=== PATIENT | male | born 1960 | race Two or more races ===

== ENCOUNTER 2019-09-03 19:25 | Inpatient (IN) | payer MEDICAID ==
[~2019-09-03] VITALS: Ht 172.7 cm; Wt 81.6 kg
[2019-09-03 23:11] LABS: BASOPHILS % 0.8 % (0.0-2.0); EOSINOPHILS % 0.7 % (0.0-5.0); HEMATOCRIT. 40.9 % (42.0-52.0); LYMPHOCYTES % 19.9 % (20.0-50.0); MEAN CORPUSCULAR HEMOGLOBIN 32.4 pg (28.0-32.0); MEAN CORPUSCULAR VOLUME 94.8 fL (80.0-94.0); MEAN PLATELET VOLUME 8.8 fl (7.4-10.4); MONOCYTES % 5.8 % (2.0-8.0); NEUTROPHILS % 72.8 % (40.0-76.0); PLATELET 284 x1000/uL (130-400); RED BLOOD CELL COUNT 4.31 mill/uL (4.7-6.1); RED CELL DISTRIBUTION WIDTH 12.8 % (11.6-14.6)
[2019-09-03 23:14] LABS: CHLORIDE 105 mEq/L (98-107)
[2019-09-04] MEDS ORDERED: ASPIRIN 325MG TABLET PO NR (03:15)
[2019-09-04] MEDS ORDERED: ONDANSETRON HCL 4MG/2ML INJ IV NR (03:15)
[2019-09-04] MEDS ORDERED: ONDANSETRON HCL 4MG/2ML INJ IV PRN (08:00)
[2019-09-04] MEDS ORDERED: ACETAMINOPHEN 325MG TABLET PO PRN (08:00)
[2019-09-04] MEDS ORDERED: ASPIRIN 81MG TABLET PO SCH (09:00)
[2019-09-04 09:30] VITALS: BP 158/101
[2019-09-04] MEDS: AMLODIPINE 10MG TABLET PO SCH (10:22)
[2019-09-04] MEDS: ENOXAPARIN 40MG/0.4ML SYR SUBCUT SCH (10:23)
[2019-09-04] MEDS ORDERED: DORZ10DR8 EACHEYE (10:53)
[2019-09-04] MEDS ORDERED: BRIM.2 EACHEYE (10:53)
[2019-09-04] MEDS ORDERED: LISI-604 PO (10:53)
[2019-09-04] MEDS ORDERED: ASPI-1497 PO (10:53)
[2019-09-04] MEDS ORDERED: ATOR40TA70 PO (10:53)
[2019-09-04] MEDS ORDERED: CHLO25TA2 PO (10:53)
[2019-09-04] MEDS ORDERED: CLONIDINE 0.1MG TABLET PO PRN (11:15)
[2019-09-04 16:00] VITALS: BP 141/87
[2019-09-04] MEDS: LOSARTAN POTASSIUM 50 MG TABLET PO SCH (18:36)
[2019-09-04 20:00] VITALS: BP 165/99
[2019-09-04] MEDS: ATORVASTATIN CALCIUM 40MG TABLET PO SCH (21:09)
[2019-09-04] MEDS: BRIMONIDINE 0.2% OPHTH DROPS 5ML BOTHEYE SCH (21:10)
[2019-09-05] VITALS: BP 153/93
[2019-09-05 04:00] VITALS: BP 144/90
[2019-09-05] MEDS: BRIMONIDINE 0.2% OPHTH DROPS 5ML BOTHEYE SCH ×3 (05:30→22:00)
[2019-09-05 06:47] LABS: CHLORIDE 109 mEq/L (98-107)
[2019-09-05 06:51] LABS: ETHANOL BLOOD < 10 mg/dL
[2019-09-05 06:54] LABS: LDL CHOLESTEROL 89 mg/dL (5-100)
[2019-09-05 06:55] LABS: BASOPHILS % 0.5 % (0.0-2.0); EOSINOPHILS % 0.3 % (0.0-5.0); HEMATOCRIT. 40.3 % (42.0-52.0); HEMOGLOBIN. 13.8 g/dL (14.0-18.0); LYMPHOCYTES % 17.6 % (20.0-50.0); MEAN CORPUSCULAR HEMOGLOBIN 32.2 pg (28.0-32.0); MEAN CORPUSCULAR VOLUME 93.8 fL (80.0-94.0); MEAN PLATELET VOLUME 8.6 fl (7.4-10.4); MONOCYTES % 13.9 % (2.0-8.0); NEUTROPHILS % 67.7 % (40.0-76.0); PLATELET 279 x1000/uL (130-400); RED CELL DISTRIBUTION WIDTH 13.2 % (11.6-14.6)
[2019-09-05 06:56] LABS: HDL CHOLESTEROL 38 mg/dL (40-59); T4 FREE 1.08 ng/dL (0.76-1.46)
[2019-09-05 07:06] LABS: FOLIC ACID (FOLATE) SERUM 8.2 ng/mL (>5.38)
[2019-09-05 08:00] VITALS: BP 141/104
[2019-09-05] MEDS: CLOPIDOGREL 75MG TABLET PO SCH (08:12)
[2019-09-05] MEDS: ENOXAPARIN 40MG/0.4ML SYR SUBCUT SCH (08:13)
[2019-09-05] MEDS: LOSARTAN POTASSIUM 50 MG TABLET PO SCH (08:13)
[2019-09-05] MEDS: AMLODIPINE 10MG TABLET PO SCH (08:13)
[2019-09-05] MEDS: DORZOLAMIDE 2% OPHTH 10 ML BOTTLE BOTHEYE SCH (08:14)
[2019-09-05 12:00] VITALS: BP 155/58
[2019-09-05] MEDS ORDERED: LISI40TA4 MT (14:36)
[2019-09-05] MEDS ORDERED: LIP40 MT (14:36)
[2019-09-05] MEDS ORDERED: CLOP75TA4 MT (14:36)
[2019-09-05] MEDS ORDERED: AMLO10TA80 MT (14:36)
[2019-09-05 16:00] VITALS: BP 138/94
[2019-09-05 20:00] VITALS: BP 126/76
[2019-09-05] MEDS: ATORVASTATIN CALCIUM 40MG TABLET PO SCH (22:00)
[2019-09-06] VITALS (7 sets, daily range): BP systolic 124–151; BP diastolic 84–98
[2019-09-06] MEDS: BRIMONIDINE 0.2% OPHTH DROPS 5ML BOTHEYE SCH ×3 (05:39→21:16)
[2019-09-06] MEDS: DORZOLAMIDE 2% OPHTH 10 ML BOTTLE BOTHEYE SCH (09:10)
[2019-09-06] MEDS: CLOPIDOGREL 75MG TABLET PO SCH (09:10)
[2019-09-06] MEDS: LOSARTAN POTASSIUM 50 MG TABLET PO SCH (09:11)
[2019-09-06] MEDS: AMLODIPINE 10MG TABLET PO SCH (09:11)
[2019-09-06] MEDS: ENOXAPARIN 40MG/0.4ML SYR SUBCUT SCH (09:11)
[2019-09-06] MEDS: ATORVASTATIN CALCIUM 40MG TABLET PO SCH (21:16)
[2019-09-07] VITALS (7 sets, daily range): BP systolic 112–153; BP diastolic 73–96
[2019-09-07] MEDS: BRIMONIDINE 0.2% OPHTH DROPS 5ML BOTHEYE SCH ×2 (05:18→13:37)
[2019-09-07] MEDS: CLOPIDOGREL 75MG TABLET PO SCH (09:47)
[2019-09-07] MEDS: LOSARTAN POTASSIUM 50 MG TABLET PO SCH (09:47)
[2019-09-07] MEDS: DORZOLAMIDE 2% OPHTH 10 ML BOTTLE BOTHEYE SCH (09:47)
[2019-09-07] MEDS: AMLODIPINE 10MG TABLET PO SCH (09:47)
[2019-09-07] MEDS: ENOXAPARIN 40MG/0.4ML SYR SUBCUT SCH (09:48)
[2019-09-07] MEDS ORDERED: LACTULOSE 20G/30ML UDC PO SCH (12:45)
[2019-09-07] MEDS ORDERED: BISACODYL 10MG SUPP PR NR (17:00)
[2019-09-07] MEDS ORDERED: SORBITOL 70% SOLN 30ML PO NR (17:00)
[2019-09-08 04:07] LABS: BARBITURATE SCREEN Negative ug/mL (Cutoff:0.1); BENZODIAZEPINE SCREEN Negative ng/mL (Cutoff:20); OPIATES SCREEN Negative ng/mL (Cutoff:5); PHENCYCLIDINE SCREEN Negative ng/mL (Cutoff:8)
== END 2019-09-07 19:50 | DRG 45 ==
LOC: ER 19:25 → 5EST 09-04 03:12 → EDBEDREQTM 09-04 03:24 → EDBEDREQ 09-04 03:24 → EDBEDREQDT 09-04 03:24 → ENRESERV 09-04 08:13 → 5WST 09-06 00:15
PROVIDERS: ADMIT Internal Medicine; ATTEND Internal Medicine
DX: I63.9 Cerebral infarction, unspecified (principal); E87.1 Hypo-osmolality and hyponatremia; I10 Essential (primary) hypertension; I16.0 Hypertensive urgency; F03.90 Unspecified dementia, unspecified severity, without behavioral disturbance, psychotic disturbance, mood disturbance, and anxiety; G81.94 Hemiplegia, unspecified affecting left nondominant side; D64.9 Anemia, unspecified; H54.8 Legal blindness, as defined in USA; H40.9 Unspecified glaucoma; E78.00 Pure hypercholesterolemia, unspecified; R26.89 Other abnormalities of gait and mobility; R47.1 Dysarthria and anarthria; R53.81 Other malaise; R73.9 Hyperglycemia, unspecified; Z79.82 Long term (current) use of aspirin; Z79.899 Other long term (current) drug therapy
CPT/HCPCS: 36415; 70544; 70551; 71045; 80048; 80053; 80061; 80307; 80320; 82607; 82746; 83036; 84439; 84443; 84481; 84484; 85025; 92523; 92610; 93005; 93306; 93880; 97112; 97162; 97167; 97530; 97535; 99291; J1650; J2405; G0480

== ENCOUNTER 2019-09-07 19:55 | Inpatient (IN) | payer MEDICAID ==
[~2019-09-07] VITALS: Ht 172.7 cm; Wt 71.7 kg
[2019-09-07 19:50] VITALS: BP 126/81
[~2019-09-07 19:55] MED LIST: AMLO10TA80 MT; ATOR40TA70 PO; BRIM.2 EACHEYE; CHLO25TA2 PO; CLOP75TA4 MT; DORZ10DR8 EACHEYE; LIP40 MT; LISI-604 PO; LISI40TA4 MT
[2019-09-07 20:00] VITALS: BP 126/81
[2019-09-07] MEDS ORDERED: ONDANSETRON HCL 4MG/2ML INJ IV PRN (21:45)
[2019-09-07] MEDS ORDERED: LACTULOSE 20G/30ML UDC PO NR (22:07)
[2019-09-07] MEDS ORDERED: CLONIDINE 0.1MG TABLET PO PRN (22:09)
[2019-09-08] MEDS: ATORVASTATIN CALCIUM 10MG TABLET PO SCH ×2 (01:05→21:33)
[2019-09-08 05:44] LABS: CHLORIDE 108 mEq/L (98-107)
[2019-09-08] MEDS: BRIMONIDINE 0.2% OPHTH DROPS 5ML BOTHEYE SCH ×3 (05:51→21:33)
[2019-09-08 06:59] LABS: BASOPHILS % 0.5 % (0.0-2.0); EOSINOPHILS % 1.6 % (0.0-5.0); HEMATOCRIT. 43.5 % (42.0-52.0); HEMOGLOBIN. 14.9 g/dL (14.0-18.0); LYMPHOCYTES % 24.9 % (20.0-50.0); MEAN CORPUSCULAR HEMOGLOBIN 32.5 pg (28.0-32.0); MEAN CORPUSCULAR VOLUME 94.7 fL (80.0-94.0); MEAN PLATELET VOLUME 8.6 fl (7.4-10.4); MONOCYTES % 13.2 % (2.0-8.0); NEUTROPHILS % 59.8 % (40.0-76.0); PLATELET 316 x1000/uL (130-400); RED BLOOD CELL COUNT 4.59 mill/uL (4.7-6.1); RED CELL DISTRIBUTION WIDTH 13.2 % (11.6-14.6)
[2019-09-08 08:00] VITALS: BP 123/73
[2019-09-08] MEDS: LOSARTAN POTASSIUM 50 MG TABLET PO SCH (08:23)
[2019-09-08] MEDS: CLOPIDOGREL 75MG TABLET PO SCH (08:23)
[2019-09-08] MEDS: AMLODIPINE 10MG TABLET PO SCH (08:24)
[2019-09-08] MEDS: DORZOLAMIDE 2% OPHTH 10 ML BOTTLE BOTHEYE SCH (08:28)
[2019-09-08] MEDS: ENOXAPARIN 40MG/0.4ML SYR SUBCUT SCH (10:07)
[2019-09-08] MEDS ORDERED: LACTULOSE 20G/30ML UDC PO SCH ×2 (12:00→14:00)
[2019-09-08] MEDS: ACETAMINOPHEN 325MG TABLET PO PRN (12:46)
[2019-09-08] MEDS: DOCUSATE SODIUM 100MG CAPSULE PO SCH (18:14)
[2019-09-08 20:00] VITALS: BP 140/96
[2019-09-08] MEDS: POLYETHYLENE GLYCOL 3350 (17GM) 1 DOSE PACK PO SCH (21:00)
[2019-09-08] MEDS ORDERED: ATORVASTATIN CALCIUM 10MG TABLET PO SCH (21:00)
[2019-09-09 02:00] VITALS: BP 104/72
[2019-09-09] MEDS: BRIMONIDINE 0.2% OPHTH DROPS 5ML BOTHEYE SCH ×3 (06:11→21:55)
[2019-09-09] MEDS: PANTOPRAZOLE 40MG DR TABLET PO SCH (06:11)
[2019-09-09 08:00] VITALS: BP 137/75
[2019-09-09] MEDS: AMLODIPINE 10MG TABLET PO SCH (09:45)
[2019-09-09] MEDS: DORZOLAMIDE 2% OPHTH 10 ML BOTTLE BOTHEYE SCH (09:45)
[2019-09-09] MEDS: LOSARTAN POTASSIUM 50 MG TABLET PO SCH (09:45)
[2019-09-09] MEDS: DOCUSATE SODIUM 100MG CAPSULE PO SCH ×2 (09:45→17:40)
[2019-09-09] MEDS: CLOPIDOGREL 75MG TABLET PO SCH (09:45)
[2019-09-09] MEDS: ENOXAPARIN 40MG/0.4ML SYR SUBCUT SCH (09:46)
[2019-09-09 10:40] VITALS: BP 137/75
[2019-09-09 20:00] VITALS: BP 104/72
[2019-09-09] MEDS: ATORVASTATIN CALCIUM 10MG TABLET PO SCH (20:44)
[2019-09-09] MEDS: POLYETHYLENE GLYCOL 3350 (17GM) 1 DOSE PACK PO SCH (20:44)
[2019-09-10 06:12] LABS: CHLORIDE 107 mEq/L (98-107)
[2019-09-10 06:19] LABS: PHOSPHORUS 2.5 mg/dL (2.5-4.9)
[2019-09-10 06:20] LABS: LDL CHOLESTEROL 91 mg/dL (5-100)
[2019-09-10 06:21] LABS: TOTAL IRON BINDING CAPACITY 242 ug/dL (250-450)
[2019-09-10 06:22] LABS: HDL CHOLESTEROL 34 mg/dL (40-59)
[2019-09-10 06:32] LABS: FOLIC ACID (FOLATE) SERUM 7.7 ng/mL (>5.38)
[2019-09-10] MEDS: PANTOPRAZOLE 40MG DR TABLET PO SCH (06:33)
[2019-09-10] MEDS: BRIMONIDINE 0.2% OPHTH DROPS 5ML BOTHEYE SCH ×3 (06:34→21:19)
[2019-09-10 06:35] LABS: BASOPHILS % 0.6 % (0.0-2.0); HEMATOCRIT. 44.4 % (42.0-52.0); HEMOGLOBIN. 15.1 g/dL (14.0-18.0); LYMPHOCYTES % 26.6 % (20.0-50.0); MEAN CORPUSCULAR VOLUME 94.2 fL (80.0-94.0); MEAN PLATELET VOLUME 8.4 fl (7.4-10.4); MONOCYTES % 12.8 % (2.0-8.0); PLATELET 308 x1000/uL (130-400); RED BLOOD CELL COUNT 4.72 mill/uL (4.7-6.1); RED CELL DISTRIBUTION WIDTH 13.1 % (11.6-14.6)
[2019-09-10 06:39] LABS: PROSTRATE SPECIFIC AG TOTAL 0.66 ng/mL (0.0-4.0)
[2019-09-10 08:17] VITALS: BP 106/76
[2019-09-10] MEDS: DORZOLAMIDE 2% OPHTH 10 ML BOTTLE BOTHEYE SCH (08:59)
[2019-09-10] MEDS: CLOPIDOGREL 75MG TABLET PO SCH (09:00)
[2019-09-10] MEDS: LOSARTAN POTASSIUM 50 MG TABLET PO SCH (09:00)
[2019-09-10] MEDS: AMLODIPINE 10MG TABLET PO SCH ×2 (09:00→09:01)
[2019-09-10] MEDS: DOCUSATE SODIUM 100MG CAPSULE PO SCH ×2 (09:00→16:37)
[2019-09-10] MEDS: ENOXAPARIN 40MG/0.4ML SYR SUBCUT SCH (09:01)
[2019-09-10] MEDS ORDERED: CYANOCOBALAMIN 1000MCG/ML VIAL IM NR (11:15)
[2019-09-10] MEDS ORDERED: BISACODYL 5MG TABLET PO PRN (14:45)
[2019-09-10] MEDS ORDERED: NA PHOS,M-B/NA PHOS,DI-BA ENEMA 118ML PR PRN (14:45)
[2019-09-10] MEDS: LACTULOSE 20G/30ML UDC PO PRN (16:38)
[2019-09-10 20:00] VITALS: BP 117/77
[2019-09-10] MEDS: POLYETHYLENE GLYCOL 3350 (17GM) 1 DOSE PACK PO SCH (21:18)
[2019-09-10] MEDS: FAMOTIDINE 20MG TABLET PO SCH (21:19)
[2019-09-10] MEDS: ATORVASTATIN CALCIUM 10MG TABLET PO SCH (21:19)
[2019-09-11] MEDS: BRIMONIDINE 0.2% OPHTH DROPS 5ML BOTHEYE SCH ×3 (05:16→21:20)
[2019-09-11] MEDS: LOSARTAN POTASSIUM 50 MG TABLET PO SCH (08:16)
[2019-09-11] MEDS: DOCUSATE SODIUM 100MG CAPSULE PO SCH ×2 (08:16→16:13)
[2019-09-11] MEDS: ENOXAPARIN 40MG/0.4ML SYR SUBCUT SCH (08:16)
[2019-09-11] MEDS: CLOPIDOGREL 75MG TABLET PO SCH (08:16)
[2019-09-11] MEDS: FAMOTIDINE 20MG TABLET PO SCH ×2 (08:16→21:20)
[2019-09-11] MEDS: DORZOLAMIDE 2% OPHTH 10 ML BOTTLE BOTHEYE SCH (08:17)
[2019-09-11 08:30] VITALS: BP 138/78
[2019-09-11 20:00] VITALS: BP 104/68
[2019-09-11] MEDS: POLYETHYLENE GLYCOL 3350 (17GM) 1 DOSE PACK PO SCH (21:20)
[2019-09-11] MEDS: ATORVASTATIN CALCIUM 10MG TABLET PO SCH (21:20)
[2019-09-12] MEDS: BRIMONIDINE 0.2% OPHTH DROPS 5ML BOTHEYE SCH ×3 (06:12→20:41)
[2019-09-12 07:35] VITALS: BP 118/76
[2019-09-12] MEDS: DOCUSATE SODIUM 100MG CAPSULE PO SCH ×2 (08:13→16:21)
[2019-09-12] MEDS: FAMOTIDINE 20MG TABLET PO SCH ×2 (08:13→20:41)
[2019-09-12] MEDS: CLOPIDOGREL 75MG TABLET PO SCH (08:13)
[2019-09-12] MEDS: LOSARTAN POTASSIUM 50 MG TABLET PO SCH (08:13)
[2019-09-12] MEDS: DORZOLAMIDE 2% OPHTH 10 ML BOTTLE BOTHEYE SCH (08:14)
[2019-09-12] MEDS: ENOXAPARIN 40MG/0.4ML SYR SUBCUT SCH (08:14)
[2019-09-12 20:00] VITALS: BP 156/95
[2019-09-12] MEDS: ATORVASTATIN CALCIUM 10MG TABLET PO SCH (20:41)
[2019-09-12] MEDS: POLYETHYLENE GLYCOL 3350 (17GM) 1 DOSE PACK PO SCH (20:41)
[2019-09-13] MEDS: BRIMONIDINE 0.2% OPHTH DROPS 5ML BOTHEYE SCH ×3 (05:19→21:08)
[2019-09-13 07:58] VITALS: BP 128/88
[2019-09-13 08:08] VITALS: BP 128/88
[2019-09-13] MEDS: LOSARTAN POTASSIUM 25 MG TABLET PO SCH (09:02)
[2019-09-13] MEDS: FAMOTIDINE 20MG TABLET PO SCH ×2 (09:02→20:17)
[2019-09-13] MEDS: CLOPIDOGREL 75MG TABLET PO SCH (09:02)
[2019-09-13] MEDS: ENOXAPARIN 40MG/0.4ML SYR SUBCUT SCH (09:03)
[2019-09-13] MEDS: DORZOLAMIDE 2% OPHTH 10 ML BOTTLE BOTHEYE SCH (09:04)
[2019-09-13] MEDS: DOCUSATE SODIUM 100MG CAPSULE PO SCH ×2 (09:06→16:29)
[2019-09-13 20:00] VITALS: BP 136/89
[2019-09-13] MEDS: ATORVASTATIN CALCIUM 10MG TABLET PO SCH (20:17)
[2019-09-13] MEDS: POLYETHYLENE GLYCOL 3350 (17GM) 1 DOSE PACK PO SCH (20:18)
[2019-09-14] MEDS: BRIMONIDINE 0.2% OPHTH DROPS 5ML BOTHEYE SCH ×3 (05:12→21:13)
[2019-09-14 07:55] LABS: BASOPHILS % 0.5 % (0.0-2.0); EOSINOPHILS % 2.4 % (0.0-5.0); HEMATOCRIT. 40.8 % (42.0-52.0); HEMOGLOBIN. 13.9 g/dL (14.0-18.0); MEAN CORPUSCULAR HEMOGLOBIN 32.2 pg (28.0-32.0); MEAN CORPUSCULAR VOLUME 94.2 fL (80.0-94.0); MEAN PLATELET VOLUME 8.1 fl (7.4-10.4); MONOCYTES % 13.1 % (2.0-8.0); PLATELET 316 x1000/uL (130-400); RED BLOOD CELL COUNT 4.33 mill/uL (4.7-6.1); RED CELL DISTRIBUTION WIDTH 12.8 % (11.6-14.6)
[2019-09-14 08:00] VITALS: BP 124/81
[2019-09-14 08:20] LABS: CHLORIDE 108 mEq/L (98-107)
[2019-09-14] MEDS: CLOPIDOGREL 75MG TABLET PO SCH (09:30)
[2019-09-14] MEDS: DOCUSATE SODIUM 100MG CAPSULE PO SCH ×2 (09:30→17:03)
[2019-09-14] MEDS: FAMOTIDINE 20MG TABLET PO SCH ×2 (09:30→21:12)
[2019-09-14] MEDS: LOSARTAN POTASSIUM 25 MG TABLET PO SCH (09:30)
[2019-09-14] MEDS: ENOXAPARIN 40MG/0.4ML SYR SUBCUT SCH (09:31)
[2019-09-14] MEDS: DORZOLAMIDE 2% OPHTH 10 ML BOTTLE BOTHEYE SCH (09:31)
[2019-09-14 13:07] LABS: 25-HYDROXY VITAMIN D3 25 ng/mL (.)
[2019-09-14] MEDS: ACETAMINOPHEN 325MG TABLET PO PRN (19:46)
[2019-09-14 20:00] VITALS: BP 124/89
[2019-09-14] MEDS: POLYETHYLENE GLYCOL 3350 (17GM) 1 DOSE PACK PO SCH (21:00)
[2019-09-14] MEDS: ATORVASTATIN CALCIUM 10MG TABLET PO SCH (21:12)
[2019-09-15] MEDS: BRIMONIDINE 0.2% OPHTH DROPS 5ML BOTHEYE SCH ×3 (05:14→21:39)
[2019-09-15 08:00] VITALS: BP 129/83
[2019-09-15] MEDS: FAMOTIDINE 20MG TABLET PO SCH ×2 (08:57→20:42)
[2019-09-15] MEDS: ENOXAPARIN 40MG/0.4ML SYR SUBCUT SCH (09:38)
[2019-09-15] MEDS: DORZOLAMIDE 2% OPHTH 10 ML BOTTLE BOTHEYE SCH (09:38)
[2019-09-15] MEDS: DOCUSATE SODIUM 100MG CAPSULE PO SCH ×2 (09:39→16:36)
[2019-09-15] MEDS: LOSARTAN POTASSIUM 25 MG TABLET PO SCH (09:39)
[2019-09-15] MEDS: CLOPIDOGREL 75MG TABLET PO SCH (09:39)
[2019-09-15 20:00] VITALS: BP 111/70
[2019-09-15] MEDS: ATORVASTATIN CALCIUM 10MG TABLET PO SCH (20:42)
[2019-09-15] MEDS: POLYETHYLENE GLYCOL 3350 (17GM) 1 DOSE PACK PO SCH (20:42)
[2019-09-16] MEDS: BRIMONIDINE 0.2% OPHTH DROPS 5ML BOTHEYE SCH ×3 (05:57→21:57)
[2019-09-16 07:51] VITALS: BP 124/85
[2019-09-16] MEDS: FAMOTIDINE 20MG TABLET PO SCH ×2 (08:20→21:56)
[2019-09-16] MEDS: LOSARTAN POTASSIUM 25 MG TABLET PO SCH (08:20)
[2019-09-16] MEDS: DOCUSATE SODIUM 100MG CAPSULE PO SCH ×2 (08:20→16:33)
[2019-09-16] MEDS: CLOPIDOGREL 75MG TABLET PO SCH (08:20)
[2019-09-16] MEDS: ENOXAPARIN 40MG/0.4ML SYR SUBCUT SCH (08:20)
[2019-09-16] MEDS: DORZOLAMIDE 2% OPHTH 10 ML BOTTLE BOTHEYE SCH (08:22)
[2019-09-16 20:00] VITALS: BP 111/44
[2019-09-16] MEDS: POLYETHYLENE GLYCOL 3350 (17GM) 1 DOSE PACK PO SCH (21:00)
[2019-09-16] MEDS: ATORVASTATIN CALCIUM 10MG TABLET PO SCH (21:56)
[2019-09-17] MEDS: BRIMONIDINE 0.2% OPHTH DROPS 5ML BOTHEYE SCH ×3 (05:23→22:04)
[2019-09-17 07:33] VITALS: BP 130/76
[2019-09-17] MEDS: CLOPIDOGREL 75MG TABLET PO SCH (08:16)
[2019-09-17] MEDS: DOCUSATE SODIUM 100MG CAPSULE PO SCH ×2 (08:16→17:07)
[2019-09-17] MEDS: LACTULOSE 20G/30ML UDC PO PRN (08:16)
[2019-09-17] MEDS: LOSARTAN POTASSIUM 25 MG TABLET PO SCH (08:16)
[2019-09-17] MEDS: FAMOTIDINE 20MG TABLET PO SCH ×2 (08:16→22:03)
[2019-09-17] MEDS: ENOXAPARIN 40MG/0.4ML SYR SUBCUT SCH (08:17)
[2019-09-17] MEDS: DORZOLAMIDE 2% OPHTH 10 ML BOTTLE BOTHEYE SCH (08:17)
[2019-09-17 20:00] VITALS: BP 109/67
[2019-09-17] MEDS: POLYETHYLENE GLYCOL 3350 (17GM) 1 DOSE PACK PO SCH (22:03)
[2019-09-17] MEDS: ATORVASTATIN CALCIUM 10MG TABLET PO SCH (22:03)
[2019-09-18] MEDS: BRIMONIDINE 0.2% OPHTH DROPS 5ML BOTHEYE SCH ×3 (06:16→20:20)
[2019-09-18 07:50] VITALS: BP 152/93
[2019-09-18] MEDS: LOSARTAN POTASSIUM 25 MG TABLET PO SCH (08:08)
[2019-09-18] MEDS: CLOPIDOGREL 75MG TABLET PO SCH (08:08)
[2019-09-18] MEDS: ENOXAPARIN 40MG/0.4ML SYR SUBCUT SCH (08:08)
[2019-09-18] MEDS: FAMOTIDINE 20MG TABLET PO SCH ×2 (08:08→20:20)
[2019-09-18] MEDS: DOCUSATE SODIUM 100MG CAPSULE PO SCH ×2 (08:08→17:18)
[2019-09-18] MEDS: DORZOLAMIDE 2% OPHTH 10 ML BOTTLE BOTHEYE SCH (08:08)
[2019-09-18 20:00] VITALS: BP 109/68
[2019-09-18] MEDS: POLYETHYLENE GLYCOL 3350 (17GM) 1 DOSE PACK PO SCH (20:20)
[2019-09-18] MEDS: ATORVASTATIN CALCIUM 10MG TABLET PO SCH (20:20)
[2019-09-19] MEDS: BRIMONIDINE 0.2% OPHTH DROPS 5ML BOTHEYE SCH ×3 (05:53→22:23)
[2019-09-19 08:01] VITALS: BP 119/76
[2019-09-19] MEDS: ENOXAPARIN 40MG/0.4ML SYR SUBCUT SCH (08:09)
[2019-09-19] MEDS: FAMOTIDINE 20MG TABLET PO SCH ×2 (08:09→21:26)
[2019-09-19] MEDS: LOSARTAN POTASSIUM 25 MG TABLET PO SCH (08:09)
[2019-09-19] MEDS: DOCUSATE SODIUM 100MG CAPSULE PO SCH ×2 (08:09→16:28)
[2019-09-19] MEDS: DORZOLAMIDE 2% OPHTH 10 ML BOTTLE BOTHEYE SCH (08:09)
[2019-09-19] MEDS: CLOPIDOGREL 75MG TABLET PO SCH (08:09)
[2019-09-19] MEDS: ACETAMINOPHEN 325MG TABLET PO PRN (08:20)
[2019-09-19 20:00] VITALS: BP 108/69
[2019-09-19] MEDS: POLYETHYLENE GLYCOL 3350 (17GM) 1 DOSE PACK PO SCH (21:26)
[2019-09-19] MEDS: ATORVASTATIN CALCIUM 10MG TABLET PO SCH (21:26)
[2019-09-20] MEDS: BRIMONIDINE 0.2% OPHTH DROPS 5ML BOTHEYE SCH ×3 (05:27→21:16)
[2019-09-20 07:36] VITALS: BP 135/95
[2019-09-20] MEDS: DORZOLAMIDE 2% OPHTH 10 ML BOTTLE BOTHEYE SCH (08:29)
[2019-09-20] MEDS: ENOXAPARIN 40MG/0.4ML SYR SUBCUT SCH (08:29)
[2019-09-20] MEDS: LOSARTAN POTASSIUM 25 MG TABLET PO SCH (08:29)
[2019-09-20] MEDS: DOCUSATE SODIUM 100MG CAPSULE PO SCH ×2 (08:29→16:19)
[2019-09-20] MEDS: CLOPIDOGREL 75MG TABLET PO SCH (08:29)
[2019-09-20] MEDS: FAMOTIDINE 20MG TABLET PO SCH ×2 (08:29→21:15)
[2019-09-20 20:00] VITALS: BP 152/52
[2019-09-20] MEDS: ATORVASTATIN CALCIUM 10MG TABLET PO SCH (21:16)
[2019-09-20] MEDS: POLYETHYLENE GLYCOL 3350 (17GM) 1 DOSE PACK PO SCH (21:16)
[2019-09-21] MEDS: BRIMONIDINE 0.2% OPHTH DROPS 5ML BOTHEYE SCH ×3 (05:20→21:33)
[2019-09-21 07:40] VITALS: BP 120/73
[2019-09-21] MEDS: FAMOTIDINE 20MG TABLET PO SCH ×2 (08:00→21:33)
[2019-09-21] MEDS: CLOPIDOGREL 75MG TABLET PO SCH (08:00)
[2019-09-21] MEDS: DOCUSATE SODIUM 100MG CAPSULE PO SCH ×2 (08:01→16:23)
[2019-09-21] MEDS: DORZOLAMIDE 2% OPHTH 10 ML BOTTLE BOTHEYE SCH (08:01)
[2019-09-21] MEDS: LOSARTAN POTASSIUM 25 MG TABLET PO SCH (08:01)
[2019-09-21] MEDS: ENOXAPARIN 40MG/0.4ML SYR SUBCUT SCH (08:01)
[2019-09-21 20:00] VITALS: BP 138/87
[2019-09-21] MEDS: POLYETHYLENE GLYCOL 3350 (17GM) 1 DOSE PACK PO SCH (21:00)
[2019-09-21] MEDS: ATORVASTATIN CALCIUM 10MG TABLET PO SCH (21:33)
[2019-09-22] MEDS: BRIMONIDINE 0.2% OPHTH DROPS 5ML BOTHEYE SCH (06:07)
[2019-09-22 06:30] LABS: BASOPHILS % 0.4 % (0.0-2.0); EOSINOPHILS % 2.4 % (0.0-5.0); HEMATOCRIT. 40.6 % (42.0-52.0); HEMOGLOBIN. 13.7 g/dL (14.0-18.0); LYMPHOCYTES % 22.5 % (20.0-50.0); MEAN CORPUSCULAR VOLUME 94.4 fL (80.0-94.0); MEAN PLATELET VOLUME 8.2 fl (7.4-10.4); MONOCYTES % 11.4 % (2.0-8.0); NEUTROPHILS % 63.3 % (40.0-76.0); PLATELET 320 x1000/uL (130-400); RED CELL DISTRIBUTION WIDTH 13.4 % (11.6-14.6)
[2019-09-22 06:43] LABS: CHLORIDE 110 mEq/L (98-107)
[2019-09-22 08:00] VITALS: BP 113/65
[2019-09-22] MEDS: FAMOTIDINE 20MG TABLET PO SCH (08:19)
[2019-09-22] MEDS: LOSARTAN POTASSIUM 25 MG TABLET PO SCH (08:19)
[2019-09-22] MEDS: CLOPIDOGREL 75MG TABLET PO SCH (08:20)
[2019-09-22] MEDS: DOCUSATE SODIUM 100MG CAPSULE PO SCH (08:20)
[2019-09-22] MEDS: DORZOLAMIDE 2% OPHTH 10 ML BOTTLE BOTHEYE SCH (08:27)
[2019-09-22] MEDS: ENOXAPARIN 40MG/0.4ML SYR SUBCUT SCH (08:33)
[2019-09-22 11:47] VITALS: BP 113/65
== END 2019-09-22 14:00 | disposition home health service (06) | DRG 58 ==
PROVIDERS: ADMIT Physical Medicine & Rehabilitation Spinal Cord Injury Medicine; ATTEND Internal Medicine
DX: I69.354 Hemiplegia and hemiparesis following cerebral infarction affecting left non-dominant side (principal); I63.81 Other cerebral infarction due to occlusion or stenosis of small artery; I16.0 Hypertensive urgency; D64.9 Anemia, unspecified; E44.1 Mild protein-calorie malnutrition; E78.00 Pure hypercholesterolemia, unspecified; E87.8 Other disorders of electrolyte and fluid balance, not elsewhere classified; F03.90 Unspecified dementia, unspecified severity, without behavioral disturbance, psychotic disturbance, mood disturbance, and anxiety; H40.9 Unspecified glaucoma; H54.8 Legal blindness, as defined in USA; I10 Essential (primary) hypertension; R13.10 Dysphagia, unspecified; R26.89 Other abnormalities of gait and mobility; R47.1 Dysarthria and anarthria; R53.81 Other malaise; R73.9 Hyperglycemia, unspecified; Z68.24 Body mass index [BMI] 24.0-24.9, adult; Z79.899 Other long term (current) drug therapy; Z79.82 Long term (current) use of aspirin
CPT/HCPCS: 36415; 80048; 80053; 80061; 82306; 82607; 82728; 82746; 83036; 83540; 83550; 83735; 84100; 84134; 84153; 84443; 85025; 92523; 92610; 93970; 97110; 97112; 97116; 97129; 97130; 97162; 97166; 97530; 97535; J1650; J3420; G0103